=== PATIENT | male | born 1945 | race Caucasian/White ===

== ENCOUNTER → 2021-10-22 | Outpatient (CLI) | payer OTHER ==
--- NOTE | 2021-10-22 18:39 | DIREP ---
PROCEDURE:CHEST 2 VIEWS COMPARISON:[facility], CR, XRAY CHEST 2 VWS, 01/20/2018, 10:28 AM. INDICATIONS:PHYSICAL EVALUATION FINDINGS: LUNGS/PLEURA:No significant pulmonary parenchymal abnormalities. No effusions. VASCULATURE:Normal. Unremarkable pulmonary vasculature. CARDIAC:Normal. No cardiac silhouette abnormality or cardiomegaly. MEDIASTINUM:Normal. No visible mass or adenopathy. BONES:Normal. No fracture or visible bony lesion. OTHER:Wire sutures in the sternum. Cardiac defibrillator. Prosthetic heart valve. CONCLUSION:No acute findings. Chronic or incidental findings as above. Dictated by: Kelton Palacio MD on 10/22/2021 at 05:34 PM Read in [place]
== END | disposition home or self-care (01) ==
LOC: RAD 12:24
PROVIDERS: ATTEND Nurse Practitioner
DX: Z00.00 Encounter for general adult medical examination without abnormal findings (principal)
CPT/HCPCS: 71046

== ENCOUNTER → 2023-11-03 | Outpatient (CLI) | payer OTHER | END | disposition home or self-care (01) | LOC: RAD 10:01 | PROVIDERS: ATTEND Nurse Practitioner Family | DX: Z00.00 Encounter for general adult medical examination without abnormal findings (principal); Z87.891 Personal history of nicotine dependence; I70.0 Atherosclerosis of aorta; M47.814 Spondylosis without myelopathy or radiculopathy, thoracic region | CPT/HCPCS: 71046 ==